=== PATIENT | male | born 1980 | race African-American/Black ===

== ENCOUNTER 2018-09-23 16:38 | Emergency (ER) | payer SELFPAY ==
[~2018-09-23] VITALS: Ht 180.3 cm; Wt 73.0 kg
[2018-09-23] MEDS ORDERED: ALBUTEROL (0.083%) 2.5MG/3ML NEB HHN STA (23:14)
[2018-09-23] MEDS ORDERED: IPRATROPIUM BROMIDE (0.02%) 0.5MG/2.5ML NEB HHN STA (23:14)
[2018-09-23] MEDS ORDERED: ASPIRIN 81MG TABLET PO ONE (23:15)
[2018-09-23 23:50] LABS: BASOPHILS % 0.7 % (0.0-2.0); EOSINOPHILS % 0.8 % (0.0-5.0); HEMATOCRIT. 43.8 % (42.0-52.0); HEMOGLOBIN. 14.8 g/dL (14.0-18.0); LYMPHOCYTES % 17.2 % (20.0-50.0); MEAN CORPUSCULAR HEMOGLOBIN 30.7 pg (28.0-32.0); MEAN CORPUSCULAR VOLUME 90.7 fL (80.0-94.0); MEAN PLATELET VOLUME 7.2 fl (7.4-10.4); MONOCYTES % 13.6 % (2.0-8.0); NEUTROPHILS % 67.7 % (40.0-76.0); PLATELET 264 x1000/uL (130-400); RED BLOOD CELL COUNT 4.82 mill/uL (4.7-6.1); RED CELL DISTRIBUTION WIDTH 14.6 % (11.6-14.6)
[2018-09-23 23:55] LABS: CHLORIDE 107 mEq/L (98-107)
[2018-09-24 03:03] VITALS: BP 118/72
== END 2018-09-24 03:14 | disposition home or self-care (01) ==
LOC: ER 16:38
DX: J20.9 Acute bronchitis, unspecified (principal); R07.9 Chest pain, unspecified; F17.200 Nicotine dependence, unspecified, uncomplicated; Z88.0 Allergy status to penicillin
CPT/HCPCS: 36415; 71045; 80053; 83880; 84484; 85025; 93005; 99284; J7611

== ENCOUNTER 2020-06-10 18:46 | Emergency (ER) | payer BC ==
[~2020-06-10] VITALS: Ht 180.3 cm; Wt 87.0 kg
[2020-06-10 22:26] VITALS: BP 134/76
== END 2020-06-10 22:27 | disposition home or self-care (01) ==
LOC: ER 18:46
DX: K02.9 Dental caries, unspecified (principal); Z88.0 Allergy status to penicillin
CPT/HCPCS: 99283